=== PATIENT | female | born 1955 | race Caucasian/White ===

== ENCOUNTER 2022-03-30 13:35 | Observation (INO) | payer MEDICARE ==
[~2022-03-30 13:35] MED LIST: Iopamidol-370 76% 500 ML 1 ML ONE
[2022-03-30] MEDS ORDERED: Boostrix 0.5 ML (Tdap) VIAL (>/=7 yrs of age) ONE (13:45)
[2022-03-30 13:57] LABS: #Basophils 0.1 thou/uL (0.0-0.2); #Eosinphils 0.2 thou/uL (0.0-0.7); #Lymphocytes 4.1 thou/uL (1.20-3.40); #Monocytes 0.7 thou/uL (0.11-0.59); %Basophils 0.6 % (0.0-1.0); %Eosinophils 1.5 % (0.0-10.0); %Lymphocytes 34.3 % (21.0-51.0); %Monocytes 5.7 % (0.0-10.0); %Neutrophils 57.9 % (42.0-75.0); Hemoglobin 14.4 g/dL (12.0-16.0); Mean Corpuscular HGB CONC 32.8 g/dL (32.0-36.0); Mean Corpuscular Hemoglobin 32.3 pg (27.0-31.0); Mean Corpuscular Volume 98.6 fL (78.0-98.0); Mean Platelet Volume 9.5 fL (7.4-10.4); Platelet Count 218 thou/uL (130-400); Red Blood Cell (RBC) Count 4.46 mill/uL (4.20-5.40)
[2022-03-30 14:16] LABS: ALT (SGPT) 15 U/L (8-55); AST (SGOT) 15 U/L (5-34); Albumin 3.8 g/dL (3.4-4.8); Alkaline Phosphatase 93 U/L (40-110); Anion Gap 14 mmol/L (10-20); BUN (Urea Nitrogen) 17 mg/dL (9.8-20.1); Bilirubin, Total 0.5 mg/dL (0.2-1.2); Calc. Creatinine Clearance 0 mL/min (70-130); Calcium 9.2 mg/dL (7.8-10.44); Carbon Dioxide 25 mmol/L (23-31); Chloride 105 mmol/L (98-107); Estimated GFR 84; Globulin 2.9 g/dL (2.4-3.5); Glucose 116 mg/dL (80-115); Potassium 3.8 mmol/L (3.5-5.1); Protein, Total 6.7 g/dL (5.8-8.1); Sodium 140 mmol/L (136-145)
[2022-03-30] MEDS ORDERED: Morphine 4 MG/ML VIAL ONE (14:37)
[2022-03-30] MEDS ORDERED: Ondansetron PF 4 MG/2 ML Vial ONE (14:37)
[2022-03-30] MEDS ORDERED: Aspirin Chewable 81 MG TAB ONE (15:24)
[2022-03-30] MEDS ORDERED: Acetaminophen 500 MG TAB ONE (18:05)
[2022-03-30] MEDS ORDERED: Ketorolac Tromethamine 30 MG/ML VIAL ONE (18:05)
[2022-03-30] MEDS ORDERED: Gabapentin 300 MG CAP PO SCH (18:15)
[2022-03-30] MEDS ORDERED: Dextrose 50% Abboject 50 ML SYRINGE SLOW IVP PRN (18:27)
[2022-03-30] MEDS ORDERED: Insulin Regular 300 UNITS/3 ML VIAL SC PRN ×2 (18:27)
[2022-03-30] MEDS ORDERED: hydrALAZINE 20 MG/ML VIAL SLOW IVP PRN (18:27)
[2022-03-30] MEDS ORDERED: Dextrose 5% in Water 1,000 ML IV PRN (18:27)
[2022-03-30] MEDS ORDERED: Morphine 4 MG/ML VIAL SLOW IVP PRN (18:27)
[2022-03-30] MEDS ORDERED: Ondansetron PF 4 MG/2 ML Vial IVP PRN (18:27)
[2022-03-30] MEDS ORDERED: traMADol HCl 50 MG TAB PO PRN (18:29)
[2022-03-30] MEDS ORDERED: Cyclobenzaprine 10 MG TAB PO PRN (18:29)
[2022-03-30] MEDS ORDERED: Sodium Chloride 0.9% 1,000 ML IV SCH (18:30)
[2022-03-30] MEDS: Famotidine 20 MG TAB PO SCH (21:45)
[2022-03-30] MEDS: Senokot S 8.6-50 MG TAB PO SCH (21:45)
[2022-03-30] MEDS: Gabapentin 300 MG CAP PO SCH (21:48)
[2022-03-30] MEDS: traMADol HCl 50 MG TAB PO SCH (21:55)
[2022-03-30] MEDS: Acetaminophen 500 MG TAB PO SCH (21:55)
[2022-03-30] MEDS: Ibuprofen 200 MG TAB PO SCH (21:56)
[2022-03-30] MEDS ORDERED: Ibuprofen 600 MG TAB PO SCH (22:00)
[2022-03-31] MEDS: Acetaminophen 500 MG TAB PO SCH ×3 (01:00→12:57)
[2022-03-31] MEDS: traMADol HCl 50 MG TAB PO SCH ×3 (01:00→12:59)
[2022-03-31 05:51] LABS: #Basophils 0.1 thou/uL (0.0-0.2); #Eosinphils 0.1 thou/uL (0.0-0.7); #Lymphocytes 3.3 thou/uL (1.20-3.40); #Monocytes 0.9 thou/uL (0.11-0.59); #Neutrophils 5.2 thou/uL (1.40-6.50); %Basophils 0.8 % (0.0-1.0); %Eosinophils 1.1 % (0.0-10.0); %Lymphocytes 34.3 % (21.0-51.0); %Monocytes 9.7 % (0.0-10.0); %Neutrophils 54.1 % (42.0-75.0); Hemoglobin 12.6 g/dL (12.0-16.0); Mean Corpuscular HGB CONC 33.4 g/dL (32.0-36.0); Mean Corpuscular Hemoglobin 32.9 pg (27.0-31.0); Mean Corpuscular Volume 98.4 fL (78.0-98.0); Mean Platelet Volume 8.7 fL (7.4-10.4); Platelet Count 230 thou/uL (130-400); RBC Distribution Width 12.1 % (11.5-14.5); Red Blood Cell (RBC) Count 3.83 mill/uL (4.20-5.40); White Blood Cell (WBC) Count 9.6 thou/uL (4.8-10.8)
[2022-03-31] MEDS: Ibuprofen 200 MG TAB PO SCH ×2 (06:00→13:00)
[2022-03-31 06:16] LABS: Anion Gap 11 mmol/L (10-20); BUN (Urea Nitrogen) 16 mg/dL (9.8-20.1); Calc. Creatinine Clearance 0 mL/min (70-130); Calcium 8.8 mg/dL (7.8-10.44); Carbon Dioxide 28 mmol/L (23-31); Chloride 103 mmol/L (98-107); Estimated GFR 88; Glucose 97 mg/dL (80-115); Magnesium 2.3 mg/dL (1.6-2.6); Phosphorus 3.9 mg/dL (2.3-4.7); Potassium 3.9 mmol/L (3.5-5.1); Sodium 138 mmol/L (136-145)
[2022-03-31] MEDS: Senokot S 8.6-50 MG TAB PO SCH (08:32)
[2022-03-31] MEDS: Gabapentin 300 MG CAP PO SCH ×2 (08:32→15:58)
[2022-03-31] MEDS: Famotidine 20 MG TAB PO SCH (08:32)
[2022-03-31] MEDS ORDERED: Polyethylene Glycol 3350 17 GM Packet PO SCH (09:00)
[2022-03-31 10:08] VITALS: BMI 31.1
[2022-03-31 16:36] VITALS: BP 109/67; TEMP 98
== END 2022-03-31 16:15 | disposition home or self-care (01) ==
LOC: ERS 13:35 → SURG B 18:30
PROVIDERS: ADMIT Surgery; ATTEND Surgery
PROC: 3E0234Z Introduction of Serum, Toxoid and Vaccine into Muscle, Percutaneous Approach (ICD-10-PCS; principal; 2022-03-30)
DX: S22.22XA Fracture of body of sternum, initial encounter for closed fracture (principal); I10 Essential (primary) hypertension; E78.5 Hyperlipidemia, unspecified; E11.42 Type 2 diabetes mellitus with diabetic polyneuropathy; K21.9 Gastro-esophageal reflux disease without esophagitis; M47.812 Spondylosis without myelopathy or radiculopathy, cervical region; M43.12 Spondylolisthesis, cervical region; M48.02 Spinal stenosis, cervical region; Z86.73 Personal history of transient ischemic attack (TIA), and cerebral infarction without residual deficits; Z79.82 Long term (current) use of aspirin; Z79.84 Long term (current) use of oral hypoglycemic drugs; Z79.899 Other long term (current) drug therapy; Z88.2 Allergy status to sulfonamides; V44.5XXA Car driver injured in collision with heavy transport vehicle or bus in traffic accident, initial encounter; Z23 Encounter for immunization
CPT/HCPCS: 36415; 36416; 70450; 71045; 71260; 72125; 74177; 80048; 80053; 83735; 84100; 84484; 85025; 90471; 90715; 93005; 94640; 96374; 96375; G0378; G0390; J1885; J2270; J2405; J7050; J7620; Q9967

== ENCOUNTER 2022-05-15 11:02 | Outpatient (CLI) | payer OTHER, MEDICARE ==
[2022-05-13 16:21] VITALS: BMI 28.7
[~2022-05-15 11:02] MED LIST changes: -Iopamidol-370 76% 500 ML 1 ML ONE; +Magnevist 469MG/ML 20 ML VIAL ONE
[2022-05-15] MEDS ORDERED: Ondansetron PF 4 MG/2 ML Vial ONE (13:15)
[2022-05-15] MEDS ORDERED: ePHEDrine 50 MG/ML VIAL ONE (13:15)
[2022-05-15] MEDS ORDERED: Phenylephrine 10 MG/ML VIAL ONE (13:15)
== END 2022-05-15 15:45 | disposition home or self-care (01) ==
LOC: MRI 11:02
PROVIDERS: ATTEND Surgery
DX: V87.7XXA Person injured in collision between other specified motor vehicles (traffic), initial encounter (principal); M47.816 Spondylosis without myelopathy or radiculopathy, lumbar region; M48.061 Spinal stenosis, lumbar region without neurogenic claudication; M48.04 Spinal stenosis, thoracic region; M89.8X8 Other specified disorders of bone, other site; Z20.822 Contact with and (suspected) exposure to COVID-19
CPT/HCPCS: 72157; 72158; A9579; J2370; J2405; J3490

== ENCOUNTER 2023-11-08 14:35 | Outpatient (CLI) | payer MEDICARE, OTHER | END 2023-11-08 14:36 | disposition home or self-care (01) | LOC: BICULT 14:35 | PROVIDERS: ATTEND Family Medicine | DX: G45.9 Transient cerebral ischemic attack, unspecified (principal) | CPT/HCPCS: 93880 ==

== ENCOUNTER 2023-12-27 09:59 | Outpatient (CLI) | payer MEDICARE, OTHER | END 2023-12-27 10:00 | disposition home or self-care (01) | LOC: BICMAMMO 09:59 | PROVIDERS: ATTEND Nurse Practitioner Family | DX: Z12.31 Encounter for screening mammogram for malignant neoplasm of breast (principal); Z13.820 Encounter for screening for osteoporosis; M85.851 Other specified disorders of bone density and structure, right thigh; M85.852 Other specified disorders of bone density and structure, left thigh; Z80.3 Family history of malignant neoplasm of breast; Z78.0 Asymptomatic menopausal state | CPT/HCPCS: 77063; 77067; 77080 ==